=== PATIENT | male | born 1955 | race Caucasian/White ===

== ENCOUNTER → 2016-09-02 | Outpatient (CLI) | payer BC ==
[~2016-09-02] MED LIST: PENICILLIN PO
[2016-09-02 10:43] LABS: ALT/SGPT 27 U/L (12-78); BLOOD UREA NITROGEN 23 mg/dl (7-18); CARBON DIOXIDE 28 mmol/L (21-32); CHLORIDE 106 mmol/L (98-107); GLUCOSE 114 mg/dl (70-99); SODIUM 142 mmol/L (136-145)
[2016-09-02 10:48] LABS: ALKALINE PHOSPHATASE 50 U/L (45-117); AST/SGOT 17 U/L (15-37); PROSTATE SPECIFIC ANTIGEN < 0.010 ng/ml (0.000-4.000)
--- NOTE | 2016-09-06 10:26 | CODING QUERY MEDICAL NECESSITY ---
SUPPORTING DIAGNOSIS NEEDED Dr. Medeiros, A supporting diagnosis is required for the test/procedure performed on this patient in order for us to be reimbursed by the patient's insurance. Please provide a supporting diagnosis for the following test/procedure listed below next to the test name along with your signature. *If there is no additional diagnosis for this patient that would support the following test/procedure please document that below next to the test/procedure. Test(s)/Procedure(s) that require a supporting diagnosis: * 27132 PSA DIAGNOSIS: DATE OF SERVICE: 09/02/16 Provider Signature: Date: Thank you Tyrese Olivarez [facility] Information Management Once completed, please kindly fax back to [phone] For questions please call [phone]
== END | disposition home or self-care (01) ==
LOC: C.LAB 09:27
PROVIDERS: ATTEND Urology
DX: C67.9 Malignant neoplasm of bladder, unspecified (principal); N52.9 Male erectile dysfunction, unspecified; Z12.5 Encounter for screening for malignant neoplasm of prostate

== ENCOUNTER → 2016-09-18 | Outpatient (CLI) | payer BC ==
[~2016-09-18] MED LIST changes: +OPTIRAY 320 IV PRN
--- NOTE | 2016-09-18 15:14 | DIAGNOSTIC IMAGING REPORT ---
CT SCAN OF THE ABDOMEN AND PELVIS COMBO CLINICAL HISTORY: Bladder carcinoma. COMPARISON STUDY: Abdominal CT dated 02/27/2015. TECHNIQUE: Before and following the IV administration of 117 cc of Optiray 320, CT scan of the abdomen and pelvis is performed from the lung bases to the proximal femora. Postcontrast images were acquired in the portal venous and renal excretory phases of enhancement. Images are reviewed in the axial, sagittal, and coronal planes. IV contrast was administered without complication. CT DOSE: 2952.65 mGycm FINDINGS: Lung bases: The heart is normal in size and without pericardial effusion. Emphysematous change is suggested at the lung bases. There is no airspace consolidation or pleural effusion. Liver: The contrast-enhanced liver is enlarged, measuring 21 cm in length. The liver demonstrates diffusely diminished attenuation consistent with hepatic steatosis. There is no intrahepatic biliary ductal dilatation. The hepatic veins and portal veins are patent. Gallbladder: Unremarkable. Spleen: Normal in size and attenuation. Pancreas: Unremarkable. Adrenal glands: Unremarkable. Kidneys and ureters: The contrast enhanced kidneys are normal in size and without hydronephrosis. There are no renal calculi identified on the unenhanced images. The kidneys enhance and excrete symmetrically. There is no enhancing renal cortical mass lesion identified. Parapelvic cysts are noted in the left kidney. There is a fat-containing umbilical hernia. A 1.7 cm exophytic cyst arises from the interpolar left kidney on image #143. There is no evidence of urothelial lesion within the renal pelvis bilaterally or along the course of either ureter. The ureters are followed to the urostomy. The mid right ureter was not well opacified by excreted contrast. Abdominal vasculature: The abdominal aorta is normal in course and caliber noting mild atherosclerotic calcification. Stomach and bowel: There are postoperative changes from a diverting right lower quadrant urostomy. There is no bowel obstruction. Postoperative changes changes identified at the gastric fundus. The duodenum is normal in configuration. There is moderate diverticulosis of left colon without CT evidence of acute diverticulitis. The appendix is well-visualized and normal. Peritoneum: There is no intraperitoneal free air or abdominal ascites. Lymphadenopathy: None. Pelvic viscera: The bladder and prostate are surgically absent. Skeletal structures: There are bilateral pars defects at L5 with advanced degenerative disc space narrowing and minimal anterolisthesis at L5-S1. Degenerative change is also identified in the sacroiliac joints. No lytic or blastic lesions are seen. IMPRESSION: 1. There is no evidence of metastatic disease in the abdomen or pelvis. 2. There are postoperative changes from cystectomy with right lower quadrant urostomy. No bowel obstruction is identified. 3. There is no evidence of urothelial lesion within the renal pelvis bilaterally or along the course of the ureters. 4. There is moderate diverticulosis of the left colon without CT evidence of acute diverticulitis. 5. Hepatomegaly and hepatic steatosis. 6. Additional findings as above. Electronically signed by: Shekhar Lagos M.D. 09/18/2016 3:12 PM Dictated Date/Time: 09/18/2016 2:53 PM
== END | disposition home or self-care (01) ==
LOC: C.CTS 13:56
PROVIDERS: ATTEND Urology
DX: C67.9 Malignant neoplasm of bladder, unspecified (principal); N52.9 Male erectile dysfunction, unspecified; K57.30 Diverticulosis of large intestine without perforation or abscess without bleeding; R16.0 Hepatomegaly, not elsewhere classified; K76.0 Fatty (change of) liver, not elsewhere classified